=== PATIENT | female | born 1940 | race Caucasian/White ===

== ENCOUNTER 2024-10-24 11:39 | Emergency (ER) | payer MEDICARE, BC ==
[2024-10-24] MEDS ORDERED: Sodium Chloride 0.9% 10 ML Syringe FLUSH PRN (11:52)
[2024-10-24 12:06] LABS: EOSINOPHILS PERCENT AUTO 0.3 % (0.0-4.0); HEMOGLOBIN 14.4 g/dL (12.0-16.0); IMMATURE GRAN ABSOLUTE AUTO 0.03 x10^3/uL (0.00-0.07); LYMPHOCYTES ABSOLUTE AUTO 0.7 x10^3/uL (1.0-4.8); LYMPHOCYTES PERCENT AUTO 9.2 % (25.0-50.0); MEAN CORPUSCULAR HEMOGLOBIN 30.8 pg (26.0-32.0); MEAN CORPUSCULAR HGB CONC 33.5 g/dL (32.0-36.0); MEAN CORPUSCULAR VOLUME 91.9 fL (78.0-93.0); MONOCYTES ABSOLUTE AUTO 0.6 x10^3/uL (0.0-0.8); MONOCYTES PERCENT AUTO 7.4 % (2.0-11.0); NEUTROPHILS ABSOLUTE AUTO 6.2 x10^3/uL (1.8-7.7); NEUTROPHILS PERCENT AUTO 82.7 % (50.0-80.0); PLATELET COUNT,PLT 183 x10^3/uL (130-400); RED BLOOD CELL COUNT 4.68 x10^6/uL (4.00-5.50); WHITE BLOOD CELL COUNT,WBC 7.5 x10^3/uL (4.0-10.0)
[2024-10-24 12:38] LABS: A/G RATIO 0.93; ALANINE AMINOTRANSFERASE,ALT 17 U/L (14-59); ALBUMIN 2.6 g/dL (3.4-5.0); ALKALINE PHOSPHATASE 72 U/L (46-116); ANION GAP 12.7 mmol/L (5-15); ASPARTATE AMNIOTRANSFERASE,AST 40 U/L (15-37); BILIRUBIN TOTAL 1.7 mg/dL (0.2-1.0); BLOOD UREA NITROGEN,BUN 23 mg/dL (7-18); CALCIUM 8.4 mg/dL (8.5-10.1); CARBON DIOXIDE,CO2 26 mmol/L (21-32); CHLORIDE,CL 104 mmol/L (98-107); CREATININE 0.9 mg/dL (0.55-1.02); ESTIMATED GFR 63 mL/min (>=60); GLUCOSE RANDOM 176 mg/dL (70-99); POTASSIUM,K 3.7 mmol/L (3.5-5.1); PROTEIN TOTAL,TP 5.4 g/dL (6.4-8.2); SODIUM,NA 139 mmol/L (136-145)
[2024-10-24 12:39] LABS: CREATINE KINASE,CK 693 U/L (26-192)
== END 2024-10-24 13:09 | disposition short-term general hospital (02) ==
LOC: VM.ED 11:39
DX: S72.002A Fracture of unspecified part of neck of left femur, initial encounter for closed fracture (principal); M47.812 Spondylosis without myelopathy or radiculopathy, cervical region; X58.XXXA Exposure to other specified factors, initial encounter; Y93.89 Activity, other specified
CPT/HCPCS: 36415; 70450; 72125; 80053; 82550; 85025; 99284

== ENCOUNTER 2024-10-28 10:00 | Inpatient (IN) | payer MEDICARE, BC ==
[2024-10-28] MEDS ORDERED: Nitroglycerin 0.4 MG Tab.SL SL PRN (12:48)
[2024-10-28] MEDS ORDERED: Hypromellose 0.3% Ophth Soln 15 ML Bottle EYEBOTH PRN (13:13)
[2024-10-28] MEDS: Carbidopa/Levodopa 25-100 MG Tab PO SCH (13:14)
[2024-10-28] MEDS ORDERED: Benzocaine 20% Topical Spray UD MUCMEM PRN (13:32)
[2024-10-28] MEDS: Carvedilol 6.25 MG Tab PO SCH (17:20)
[2024-10-28] MEDS: Mirtazapine 15 MG Tab PO SCH (21:41)
[2024-10-28] MEDS: Menthol/Zinc Oxide Ointment 3.5 GM Tube TOP SCH (21:44)
[2024-10-29] MEDS: Pantoprazole 40 MG Tab.CR PO SCH (08:43)
[2024-10-29] MEDS: Potassium Chloride 20 MEQ Tab.ER PO SCH (08:44)
[2024-10-29] MEDS: Citalopram 20 MG Tab PO SCH (08:44)
[2024-10-29] MEDS: Warfarin 5 MG Tab PO ONE (08:44)
[2024-10-29] MEDS: Docusate Sodium 100 MG Cap PO SCH (08:44)
[2024-10-29] MEDS: Furosemide 20 MG Tab PO SCH (08:44)
[2024-10-29] MEDS: Losartan 25 MG Tab PO SCH (08:47)
[2024-10-29] MEDS: Digoxin 125 MCG Tab PO SCH (08:48)
[2024-10-29] MEDS: Calcium Carbonate 750 MG Tab.Chew PO PRN (11:01)
[2024-10-29] MEDS: Ondansetron 4 MG Tab.DIS PO PRN (11:01)
[2024-10-30] MEDS: Warfarin 2.5 MG Tab PO ONE (09:13)
[2024-10-31 07:17] LABS: BASOPHILS PERCENT AUTO 0.4 % (0.2-1.2); EOSINOPHILS ABSOLUTE AUTO 0.2 x10^3/uL (0.0-0.5); EOSINOPHILS PERCENT AUTO 3.7 % (0.0-4.0); HEMATOCRIT 38.1 % (33.0-47.0); HEMOGLOBIN 12.6 g/dL (12.0-16.0); IMMATURE GRAN ABSOLUTE AUTO 0.02 x10^3/uL (0.00-0.07); LYMPHOCYTES ABSOLUTE AUTO 0.9 x10^3/uL (1.0-4.8); LYMPHOCYTES PERCENT AUTO 16.8 % (25.0-50.0); MEAN CORPUSCULAR HEMOGLOBIN 30.9 pg (26.0-32.0); MEAN CORPUSCULAR HGB CONC 33.1 g/dL (32.0-36.0); MEAN CORPUSCULAR VOLUME 93.4 fL (78.0-93.0); MONOCYTES ABSOLUTE AUTO 0.5 x10^3/uL (0.0-0.8); MONOCYTES PERCENT AUTO 10.6 % (2.0-11.0); NEUTROPHILS ABSOLUTE AUTO 3.5 x10^3/uL (1.8-7.7); NEUTROPHILS PERCENT AUTO 68.1 % (50.0-80.0); PLATELET COUNT,PLT 171 x10^3/uL (130-400); RED BLOOD CELL COUNT 4.08 x10^6/uL (4.00-5.50); WHITE BLOOD CELL COUNT,WBC 5.1 x10^3/uL (4.0-10.0)
[2024-10-31 07:27] LABS: INR 1.9 (0.9-1.1); PROTHROMBIN TIME 20.1 SEC (9.6-12.0)
[2024-10-31 07:28] LABS: A/G RATIO 0.92; ALBUMIN 2.4 g/dL (3.4-5.0); BILIRUBIN TOTAL 0.7 mg/dL (0.2-1.0); CALCIUM 8.2 mg/dL (8.5-10.1); CREATININE 0.7 mg/dL (0.55-1.02); EST CRCL DRUG DOSING (CG) 44.9 mL/min; POTASSIUM,K 3.9 mmol/L (3.5-5.1)
[2024-10-31 07:29] LABS: ANION GAP 8.9 mmol/L (5-15)
[2024-10-31] MEDS: Citalopram 10 MG Tab PO SCH (09:07)
[2024-10-31] MEDS: Warfarin 5 MG Tab PO SCH (12:23)
[2024-11-01] MEDS: Warfarin 2.5 MG Tab PO SCH (09:25)
[2024-11-03 07:26] LABS: INR 1.9 (0.9-1.1); PROTHROMBIN TIME 19.8 SEC (9.6-12.0)
[2024-11-03] MEDS: Warfarin 2.5 MG Tab PO ONE (12:03)
[2024-11-04] MEDS: Warfarin 2.5 MG Tab PO SCH (09:09)
[2024-11-04] MEDS: Carbidopa/Levodopa 25-100 MG Tab PO SCH (21:23)
[2024-11-06] MEDS: Acetaminophen 325 MG Tab PO PRN (12:43)
[2024-11-07 07:44] LABS: INR 1.6 (0.9-1.1); PROTHROMBIN TIME 16.9 SEC (9.6-12.0)
[2024-11-07 07:47] LABS: A/G RATIO 0.82; ALBUMIN 2.3 g/dL (3.4-5.0); BILIRUBIN TOTAL 0.6 mg/dL (0.2-1.0); CALCIUM 8.2 mg/dL (8.5-10.1); CREATININE 0.8 mg/dL (0.55-1.02); EST CRCL DRUG DOSING (CG) 36.81 mL/min; POTASSIUM,K 4.2 mmol/L (3.5-5.1); PROTEIN TOTAL,TP 5.1 g/dL (6.4-8.2)
[2024-11-07 07:49] LABS: ANION GAP 9.2 mmol/L (5-15); BASOPHILS PERCENT AUTO 0.3 % (0.2-1.2); EOSINOPHILS ABSOLUTE AUTO 0.2 x10^3/uL (0.0-0.5); EOSINOPHILS PERCENT AUTO 2.2 % (0.0-4.0); HEMATOCRIT 35.5 % (33.0-47.0); HEMOGLOBIN 11.9 g/dL (12.0-16.0); IMMATURE GRAN ABSOLUTE AUTO 0.02 x10^3/uL (0.00-0.07); LYMPHOCYTES ABSOLUTE AUTO 0.7 x10^3/uL (1.0-4.8); MEAN CORPUSCULAR HEMOGLOBIN 31.3 pg (26.0-32.0); MEAN CORPUSCULAR HGB CONC 33.5 g/dL (32.0-36.0); MEAN CORPUSCULAR VOLUME 93.4 fL (78.0-93.0); MONOCYTES ABSOLUTE AUTO 0.7 x10^3/uL (0.0-0.8); MONOCYTES PERCENT AUTO 9.5 % (2.0-11.0); NEUTROPHILS PERCENT AUTO 78.7 % (50.0-80.0); PLATELET COUNT,PLT 163 x10^3/uL (130-400); WHITE BLOOD CELL COUNT,WBC 7.6 x10^3/uL (4.0-10.0)
[2024-11-07] MEDS: Warfarin 2.5 MG, Warfarin 5 MG PO ONE (09:25)
[2024-11-08] MEDS: Warfarin 2.5 MG Tab PO SCH (09:40)
[2024-11-09] MEDS: Warfarin 5 MG Tab PO SCH (08:46)
[2024-11-10 07:07] LABS: INR 1.9 (0.9-1.1); PROTHROMBIN TIME 19.4 SEC (9.6-12.0)
[2024-11-13 08:31] LABS: INR 1.8 (0.9-1.1); PROTHROMBIN TIME 18.8 SEC (9.6-12.0)
[2024-11-15 07:18] LABS: BASOPHILS PERCENT AUTO 0.5 % (0.2-1.2); EOSINOPHILS ABSOLUTE AUTO 0.2 x10^3/uL (0.0-0.5); EOSINOPHILS PERCENT AUTO 5.8 % (0.0-4.0); HEMATOCRIT 33.7 % (33.0-47.0); HEMOGLOBIN 11.2 g/dL (12.0-16.0); IMMATURE GRAN ABSOLUTE AUTO 0.01 x10^3/uL (0.00-0.07); LYMPHOCYTES ABSOLUTE AUTO 0.9 x10^3/uL (1.0-4.8); LYMPHOCYTES PERCENT AUTO 21.4 % (25.0-50.0); MEAN CORPUSCULAR HEMOGLOBIN 31.1 pg (26.0-32.0); MEAN CORPUSCULAR HGB CONC 33.2 g/dL (32.0-36.0); MEAN CORPUSCULAR VOLUME 93.6 fL (78.0-93.0); MONOCYTES ABSOLUTE AUTO 0.6 x10^3/uL (0.0-0.8); MONOCYTES PERCENT AUTO 13.7 % (2.0-11.0); NEUTROPHILS ABSOLUTE AUTO 2.4 x10^3/uL (1.8-7.7); NEUTROPHILS PERCENT AUTO 58.4 % (50.0-80.0); PLATELET COUNT,PLT 204 x10^3/uL (130-400); WHITE BLOOD CELL COUNT,WBC 4.2 x10^3/uL (4.0-10.0)
[2024-11-15 07:30] LABS: CREATININE 0.7 mg/dL (0.55-1.02); EST CRCL DRUG DOSING (CG) 42.86 mL/min; POTASSIUM,K 4.1 mmol/L (3.5-5.1)
[2024-11-15 07:34] LABS: ANION GAP 10.1 mmol/L (5-15)
[2024-11-15] MEDS: Ferrous Sulfate 325 MG Tab PO SCH (19:12)
[2024-11-16] MEDS: Warfarin 2.5 MG Tab PO ONE (15:30)
[2024-11-17 06:54] LABS: INR 1.9 (0.9-1.1); PROTHROMBIN TIME 20.1 SEC (9.6-12.0)
[2024-11-17] MEDS: Warfarin 5 MG Tab PO SCH (09:38)
[2024-11-18] MEDS: Warfarin 2.5 MG Tab PO SCH (08:52)
[2024-11-19] MEDS ORDERED: Sodium Chloride 0.9% 10 ML Syringe FLUSH PRN (11:58)
[2024-11-19 12:32] LABS: EOSINOPHILS ABSOLUTE AUTO 0.1 x10^3/uL (0.0-0.5); EOSINOPHILS PERCENT AUTO 0.5 % (0.0-4.0); HEMOGLOBIN 12.7 g/dL (12.0-16.0); IMMATURE GRAN ABSOLUTE AUTO 0.01 x10^3/uL (0.00-0.07); LYMPHOCYTES ABSOLUTE AUTO 0.6 x10^3/uL (1.0-4.8); LYMPHOCYTES PERCENT AUTO 6.3 % (25.0-50.0); MEAN CORPUSCULAR HEMOGLOBIN 30.5 pg (26.0-32.0); MEAN CORPUSCULAR HGB CONC 33.4 g/dL (32.0-36.0); MEAN CORPUSCULAR VOLUME 91.3 fL (78.0-93.0); MONOCYTES ABSOLUTE AUTO 0.5 x10^3/uL (0.0-0.8); MONOCYTES PERCENT AUTO 4.9 % (2.0-11.0); NEUTROPHILS ABSOLUTE AUTO 8.7 x10^3/uL (1.8-7.7); NEUTROPHILS PERCENT AUTO 88.2 % (50.0-80.0); PLATELET COUNT,PLT 258 x10^3/uL (130-400); RED BLOOD CELL COUNT 4.16 x10^6/uL (4.00-5.50); WHITE BLOOD CELL COUNT,WBC 9.8 x10^3/uL (4.0-10.0)
[2024-11-19 12:54] LABS: A/G RATIO 0.84; ALBUMIN 3.1 g/dL (3.4-5.0); BILIRUBIN TOTAL 0.8 mg/dL (0.2-1.0); CREATININE 0.7 mg/dL (0.55-1.02); EST CRCL DRUG DOSING (CG) 42.12 mL/min; MAGNESIUM 2.1 mg/dL (1.8-2.4); POTASSIUM,K 3.7 mmol/L (3.5-5.1); PROTEIN TOTAL,TP 6.8 g/dL (6.4-8.2)
[2024-11-19 13:04] LABS: ANION GAP 13.7 mmol/L (5-15)
[2024-11-19] MEDS: Iopamidol 612 MG/ML 100 ML Bottle IVPUSH ONE (14:37)
[2024-11-19] MEDS: Lidocaine 4% 5 ML Amp TOP ONE (15:07)
== END 2024-11-19 14:52 | disposition short-term general hospital (02) | DRG 559 ==
LOC: VM.MS 11:13
PROVIDERS: ADMIT Internal Medicine; ATTEND Family Medicine
PROC: 0D9670Z Drainage of Stomach with Drainage Device, Via Natural or Artificial Opening (ICD-10-PCS; principal; 2024-10-28)
DX: S72.002D Fracture of unspecified part of neck of left femur, subsequent encounter for closed fracture with routine healing (principal); E43 Unspecified severe protein-calorie malnutrition; I42.0 Dilated cardiomyopathy; I50.22 Chronic systolic (congestive) heart failure; Z68.1 Body mass index [BMI] 19.9 or less, adult; F32.2 Major depressive disorder, single episode, severe without psychotic features; K56.609 Unspecified intestinal obstruction, unspecified as to partial versus complete obstruction; W19.XXXD Unspecified fall, subsequent encounter; I48.0 Paroxysmal atrial fibrillation; G20.A1 Parkinson's disease without dyskinesia, without mention of fluctuations; I25.10 Atherosclerotic heart disease of native coronary artery without angina pectoris; E78.00 Pure hypercholesterolemia, unspecified; Z96.659 Presence of unspecified artificial knee joint; R62.7 Adult failure to thrive; K21.00 Gastro-esophageal reflux disease with esophagitis, without bleeding; G43.909 Migraine, unspecified, not intractable, without status migrainosus; N39.46 Mixed incontinence; I34.0 Nonrheumatic mitral (valve) insufficiency; R68.89 Other general symptoms and signs; R73.03 Prediabetes; I10 Essential (primary) hypertension; Z66 Do not resuscitate; D50.0 Iron deficiency anemia secondary to blood loss (chronic); Z88.8 Allergy status to other drugs, medicaments and biological substances; Z88.1 Allergy status to other antibiotic agents; Z79.899 Other long term (current) drug therapy; Z79.01 Long term (current) use of anticoagulants; Z86.0100 Personal history of colon polyps, unspecified; Z85.3 Personal history of malignant neoplasm of breast; Z95.0 Presence of cardiac pacemaker; Z98.890 Other specified postprocedural states; Z90.10 Acquired absence of unspecified breast and nipple; Z98.51 Tubal ligation status
CPT/HCPCS: 36415; 71046; 74018; 74177; 80048; 80053; 83605; 83735; 85025; 85610; 97110-GP; 97116-GP; 97161-GP; 97165-GO; 97168-GO; 97530-GO; 97530-GP; 97535-GO; A9270-GY; Q9967